=== PATIENT | male | born 1985 | race Caucasian/White ===

== ENCOUNTER 2021-04-15 12:15 | Emergency (ER) | payer OTHER ==
[2021-04-15 12:57] LABS: COVID AG,FIA SOURCE NASOPHARYNGEAL
== END 2021-04-15 13:53 | disposition home or self-care (01) ==
LOC: EMS 12:15
DX: J02.9 Acute pharyngitis, unspecified (principal); F17.210 Nicotine dependence, cigarettes, uncomplicated; Z20.822 Contact with and (suspected) exposure to COVID-19
CPT/HCPCS: 87426; 99283; U0003